=== PATIENT | male | born 1955 | race Caucasian/White ===

== ENCOUNTER 2019-08-23 07:54 | Outpatient (CLI) | payer BC ==
[2019-08-23 11:09] LABS: ALBUMIN 4.1 g/dL (3.2-5.5); ALBUMIN/GLOBULIN RATIO 1.3 (1.0-2.2); BILIRUBIN,TOTAL 1.1 mg/dL (0.2-1.0); CALCIUM 9.2 mg/dL (8.5-10.3); CREATININE 1.1 mg/dL (0.6-1.2); TOTAL PROTEIN 7.2 g/dL (6.7-8.2)
== END 2019-08-23 07:55 | disposition home or self-care (01) ==
LOC: LAB.S 07:54
PROVIDERS: ATTEND Internal Medicine
DX: Z00.00 Encounter for general adult medical examination without abnormal findings (principal)
CPT/HCPCS: 36415; 80053

== ENCOUNTER 2019-09-20 07:35 | Outpatient (CLI) | payer BC ==
[2019-09-20 11:31] LABS: ALBUMIN/GLOBULIN RATIO 1.5 (1.0-2.2); ALKALINE PHOSPHATASE 37 IU/L (42-121); ALT ALANINE AMINOTRANSFERASE 17 IU/L (10-60); AST ASPARTATE AMINOTRANSFERASE 18 IU/L (10-42); BILIRUBIN,TOTAL 1.3 mg/dL (0.2-1.0); BUN - BLOOD UREA NITROGEN 13 mg/dL (6-20); CALCIUM 8.9 mg/dL (8.5-10.3); CARBON DIOXIDE - CO2 29 mmol/L (21-32); CHLORIDE 105 mmol/L (101-111); CHOL/HDL RATIO 3.3 (<5.0); CHOLESTEROL 207 mg/dL; GFR - MDRD 76 (>89); GLUCOSE 104 mg/dL (70-100); HDL CHOLESTEROL 62 mg/dL; SODIUM 140 mmol/L (135-145); TOTAL PROTEIN 6.6 g/dL (6.7-8.2)
[2019-09-20 11:32] LABS: HGB - HEMOGLOBIN 14.2 g/dL (14.0-18.0); MEAN CORPUSCULAR HEMOGLOBIN 32.1 pg (27.0-31.0); MEAN CORPUSCULAR VOLUME 97.1 fL (80.0-94.0); MEAN PLATELET VOLUME 10.9 fL (7.4-11.4); RED BLOOD COUNT 4.43 10^6/uL (4.70-6.10); RED CELL DISTRIBUTION WIDTH 13.1 % (12.0-15.0); WHITE BLOOD COUNT 4.9 x10^3/uL (4.8-10.8)
[2019-09-20 11:34] LABS: HB2 TOTAL 14.5 g/dL; HEMOGLOBIN A1C 0.54 g/dL; HEMOGLOBIN A1C % 5.6 % (4.6-6.2)
== END 2019-09-20 07:36 | disposition home or self-care (01) ==
LOC: LAB.S 07:35
PROVIDERS: ATTEND Internal Medicine
DX: Z00.00 Encounter for general adult medical examination without abnormal findings (principal); N40.1 Benign prostatic hyperplasia with lower urinary tract symptoms; R35.0 Frequency of micturition
CPT/HCPCS: 36415; 80053; 80061; 83036; 83721; 84153; 85027

== ENCOUNTER 2020-12-19 08:00 | Outpatient (CLI) | payer BC ==
[2020-12-19 20:32] LABS: BILIRUBIN,URINE NEGATIVE (NEGATIVE); GLUCOSE, URINE (UA) NEGATIVE (NEGATIVE); KETONES,URINE (UA) NEGATIVE (NEGATIVE); LEUKOCYTE ESTERASE, URINE NEGATIVE (NEGATIVE); NITRITE,URINE NEGATIVE (NEGATIVE); OCCULT BLOOD,URINE TRACE-INTA (NEGATIVE); PH,URINE 5.5 PH (5.0-7.5); PROTEIN,URINE NEGATIVE (NEGATIVE); UROBILINOGEN,URINE 0.2 (NORMAL) E.U./dL (NORMAL)
[2020-12-19 20:40] LABS: BACTERIA,URINE Rare /HPF (None Seen); CLARITY,URINE CLEAR (CLEAR); RBC,URINE 0-5 /HPF (0-5); SQUAMOUS EPITHELIAL CELL,UR RARE Squamous (<= Few); WBC,URINE 0-3 /HPF (0-3)
== END 2020-12-19 23:59 | disposition home or self-care (01) ==
LOC: LAB.S 08:00
PROVIDERS: ATTEND Emergency Medicine
DX: R30.0 Dysuria (principal)
CPT/HCPCS: 81001; 87086

== ENCOUNTER 2021-07-27 11:29 | Outpatient (CLI) | payer BC | END 2021-07-27 11:30 | disposition critical access hospital (66) | LOC: EMS 11:29 | DX: R10.9 Unspecified abdominal pain (principal) | CPT/HCPCS: A0425; A0429 ==

== ENCOUNTER 2021-07-27 11:44 | Emergency (ER) | payer BC ==
[2021-07-27 12:13] LABS: BASOPHILS % (AUTO) 0.7 %; EOSINOPHILS # (AUTO) 0.1 10^3/uL (0.0-0.7); HCT - HEMATOCRIT 43.6 % (42.0-52.0); HGB - HEMOGLOBIN 14.4 g/dL (14.0-18.0); LYMPHOCYTES # (AUTO) 1.5 10^3/uL (1.5-3.5); LYMPHOCYTES % (AUTO) 26.7 %; MEAN CORPUSCULAR VOLUME 96.9 fL (80.0-94.0); MEAN PLATELET VOLUME 9.8 fL (7.4-11.4); MONOCYTES # (AUTO) 0.7 10^3/uL (0.0-1.0); MONOCYTES % (AUTO) 12.8 %; NEUTROPHILS # (AUTO) 3.2 10^3/uL (1.5-6.6); NEUTROPHILS % (AUTO) 57.6 %; PLT - PLATELET COUNT 194 10^3/uL (130-450); RED CELL DISTRIBUTION WIDTH 13.1 % (12.0-15.0); WHITE BLOOD COUNT 5.6 x10^3/uL (4.8-10.8)
--- NOTE | 2021-07-27 12:21 | ED Physician Documentation ---
History of Present Illness - Stated complaint Stated Complaint: ABD PX - Chief complaint Chief Complaint: Abd Pain - Additonal information Additional information: 65-year-old male presents from the [facility] for evaluation of abdominal pain. He has severe and early onset dementia. Per EMS the staff reported that he had been saying he had belly pain for a few days. There have been no fevers or vomiting. The staff and the physician that were working today were not as familiar with the patient as would otherwise be. Though the patient presents appearing very well though he is very confused and demented he is denying any abdominal pain and no abdominal pain is elicited on exam. He appears very well overall. Review of Systems Unable to obtain: Dementia, Other (EMS) Constitutional: denies: Fever, Chills Eyes: reports: Reviewed and negative Ears: reports: Reviewed and negative Nose: reports: Reviewed and negative Throat: reports: Reviewed and negative GI: reports: Abdominal Pain PD PAST MEDICAL HISTORY - Allergies Allergies/Adverse Reactions: Allergies Allergy/AdvReac Type Severity Reaction Status Date / Time No Known Drug Allergies Allergy Verified 07/27/21 11:54 PD ED PE NORMAL - General General: Alert and oriented X 3, No acute distress - HEENT HEENT: Moist mucous membranes, Pharynx benign - Neck Neck: Supple, no meningeal sign, No adenopathy - Cardiac Cardiac: RRR, No murmur - Respiratory Respiratory: No respiratory distress, Clear bilaterally - Abdomen Abdomen: Normal bowel sounds, Soft, Non tender, Non distended, Other (Unable to elicit any tenderness with deep or light palpation or percussion.) - Back Back: No CVA TTP, No spinal TTP - Derm Derm: Normal color, No rash - Extremities Extremities: No deformity, No tenderness to palpate, Normal ROM s pain - Neuro Neuro: no bake molder 2-12 intact, No motor deficit, No sensory deficit, Other (Disoriented to person place and time. Severe dementia) Eye Opening: Spontaneous Motor: Obeys Commands Verbal: Confused GCS Score: 14 Results - Vitals Vitals: Vital Signs - 24 hr 07/27/21 07/27/21 11:55 12:57 Temperature 36.9 C Heart Rate 115 H 72 Respiratory 20 16 Rate Blood Pressure 146/85 H 144/90 H O2 Saturation 99 100 Oxygen O2 Source Room air - Labs Labs: Laboratory Tests 07/27/21 07/27/2121 12:09 12:09 14:15 WBC 5.6 RBC 4.50 L Hgb 14.4 Hct 43.6 MCV 96.9 H MCH 32.0 H MCHC 33.0 RDW 13.1 Plt Count 194 MPV 9.8 Neut # (Auto) 3.2 Lymph # (Auto) 1.5 [place] # (Auto) 0.7 Eos # (Auto) 0.1 Baso # (Auto) 0.0 Absolute Nucleated RBC 0.00 Nucleated RBC % 0.0 Sodium 142 Potassium 3.9 Chloride 104 Carbon Dioxide 28 Anion Gap 10.0 BUN 15 Creatinine 1.0 Estimated GFR (MDRD) 75 L Glucose 91 Calcium 9.3 Total Bilirubin 1.2 H AST 17 ALT 14 Alkaline Phosphatase 42 Total Protein 6.9 Albumin 4.3 Globulin 2.6 Albumin/Globulin Ratio 1.7 Lipase 33 Urine Color LT. YELLOW Urine Clarity CLEAR Urine pH 7.0 Ur Specific [place] 1.010 Urine Protein NEGATIVE Urine Glucose (UA) NEGATIVE Urine Ketones NEGATIVE Urine Occult Blood NEGATIVE Urine Nitrite NEGATIVE Urine Bilirubin NEGATIVE Urine Urobilinogen 0.2 (NORMAL) Ur Leukocyte Esterase NEGATIVE Ur Microscopic Review NOT INDICATED Urine Culture Comments NOT INDICATED PD MEDICAL DECISION MAKING - ED course Complexity details: reviewed results, re-evaluated patient, considered differential ED course: 65-year-old male who has a history of early and severe onset dementia presents to the emergency department with reported abdominal pain at the [facility]. However on presentation here to the emergency department the patient has no elicited abdominal pain. He has no fevers and unremarkable vital signs. His screening labs show no leukocytosis no findings of urinary tract infection. He has tolerated p.o. well here in the emergency department without vomiting. The etiology of his abdominal pain is not clear though none is elicited here thus imaging was deferred. Patient will be transferred back to his care facility. Departure - Departure Disposition: 01 Home, Self Care Clinical Impression: Dementia Qualifiers: Dementia type: Alzheimer's Alzheimer's disease onset: early-onset Dementia behavioral disturbance: without behavioral disturbance Qualified Code(s): G30.0 - Alzheimer's disease with early onset; F02.80 - Dementia in other diseases classified elsewhere without behavioral disturbance Condition: Stable Record reviewed to determine appropriate education?: Yes Instructions: Abdominal Pain Comments: Des was brought to the emergency department for reported abdominal pain. However here in the emergency department we were unable to elicit any abdominal pain. His screening labs including his urine show no significant worrisome findings and no signs of infection. If he begins to run any fevers or have uncontrolled vomiting then please return him immediately to the ER for a second evaluation.
[2021-07-27 12:27] LABS: ALBUMIN 4.3 g/dL (3.2-5.5); ALBUMIN/GLOBULIN RATIO 1.7 (1.0-2.2); BILIRUBIN,TOTAL 1.2 mg/dL (0.2-1.0); CALCIUM 9.3 mg/dL (8.5-10.3); POTASSIUM 3.9 mmol/L (3.5-5.0); TOTAL PROTEIN 6.9 g/dL (6.7-8.2)
[2021-07-27 12:57] VITALS: BP 144/90
[2021-07-27 14:33] LABS: BILIRUBIN,URINE NEGATIVE (NEGATIVE); GLUCOSE, URINE (UA) NEGATIVE (NEGATIVE); KETONES,URINE (UA) NEGATIVE (NEGATIVE); LEUKOCYTE ESTERASE, URINE NEGATIVE (NEGATIVE); NITRITE,URINE NEGATIVE (NEGATIVE); OCCULT BLOOD,URINE NEGATIVE (NEGATIVE); PROTEIN,URINE NEGATIVE (NEGATIVE); UROBILINOGEN,URINE 0.2 (NORMAL) E.U./dL (NORMAL)
[2021-07-27 14:38] LABS: CLARITY,URINE CLEAR (CLEAR)
== END 2021-07-27 16:07 | disposition home or self-care (01) ==
LOC: EDUNIT# → ED 11:44
DX: G30.0 Alzheimer's disease with early onset (principal); F02.80 Dementia in other diseases classified elsewhere, unspecified severity, without behavioral disturbance, psychotic disturbance, mood disturbance, and anxiety
CPT/HCPCS: 36415; 51701; 80053; 81001; 81003; 83690; 85025; 87086; 99283

== ENCOUNTER 2021-07-29 15:58 | Outpatient (CLI) | payer BC | END 2021-07-29 15:59 | disposition critical access hospital (66) | LOC: EMS 15:58 | DX: R10.30 Lower abdominal pain, unspecified (principal); R14.0 Abdominal distension (gaseous) | CPT/HCPCS: A0425; A0429 ==

== ENCOUNTER 2021-07-29 16:14 | Emergency (ER) | payer BC ==
--- NOTE | 2021-07-29 16:18 | ED Physician Documentation ---
History of Present Illness - Stated complaint Stated Complaint: LOWER ABD PX - History obtained from History obtained from: EMS - Additonal information Additional information: 65-year-old gentleman brought in from [facility] for complaints of lower abdominal pain for the last few hours. He is quite demented and unable to really get any specific history from the patient, he is just speaking gibberish for the most part. Per EMS, he has been complaining of lower abdominal pain and penile burning for the last 2 hours or so. He was straight cathed at the facility without relief. Review of Systems Unable to obtain: Dementia PD PAST MEDICAL HISTORY - Past Medical History Neuro: Alzhiemer's - Allergies Allergies/Adverse Reactions: Allergies Allergy/AdvReac Type Severity Reaction Status Date / Time No Known Drug Allergies Allergy Verified 07/29/21 16:24 - Social History Does the pt smoke?: No Smoking Status: Never smoker PD ED PE NORMAL - Vitals Vital signs reviewed: Yes - General General: No acute distress, Other (Nonsensical gibberish speech) - Abdomen Abdomen: Normal bowel sounds, Soft, Non tender Results - Vitals Vitals: Vital Signs - 24 hr 07/29/21 16:25 Temperature 36.5 C Heart Rate 94 Respiratory 16 Rate Blood Pressure 121/66 O2 Saturation 98 Oxygen O2 Source Room air - Labs Labs: Laboratory Tests 07/29/21 07/29/21 16:30 16:30 WBC 6.9 RBC 4.36 L Hgb 14.0 Hct 42.0 MCV 96.3 H MCH 32.1 H MCHC 33.3 RDW 13.1 Plt Count 206 MPV 10.4 Neut # (Auto) 4.4 Lymph # (Auto) 1.6 [place] # (Auto) 0.8 Eos # (Auto) 0.1 Baso # (Auto) 0.0 Absolute Nucleated RBC 0.00 Nucleated RBC % 0.0 Sodium 140 Potassium 3.7 Chloride 106 Carbon Dioxide 25 Anion Gap 9.0 BUN 18 Creatinine 1.1 Estimated GFR (MDRD) 68 L Glucose 94 Calcium 9.1 Total Bilirubin 0.9 AST 18 ALT 13 Alkaline Phosphatase 40 L Total Protein 6.8 Albumin 4.2 Globulin 2.6 Albumin/Globulin Ratio 1.6 Lipase 38 PD MEDICAL DECISION MAKING - ED course ED course: 65-year-old gentleman presents by ambulance for recurrent abdominal pain. History is limited by dementia but exam is very benign. He was here a few days ago for similar with negative work-up, normal labs. 65-year-old gentleman presents with suprapubic pain and is found to be retaining urine with a bladder scan of greater than 600 mL. Damon was placed and I discussed the case by phone with the nursing plant operator/shift supervisor at home place. There is a concern of how well he will tolerate the Damon but will have to just give it a try right now. He is already on tamsulosin and finasteride. Has established urologist. Spoke with brother/POA, pt had TURP 2 yrs ago. Has established urologist. Departure - Departure Disposition: Home, Self Care Clinical Impression: Urinary retention BPH (benign prostatic hyperplasia) Qualifiers: Lower urinary tract symptom presence: symptoms present Lower urinary tract symptom detail: incomplete bladder emptying Qualified Code(s): N40.1 - Benign prostatic hyperplasia with lower urinary tract symptoms Condition: Good Record reviewed to determine appropriate education?: Yes Instructions: ED Retention Urinary Male Comments: Continue current medications. Routine Damon care and please arrange for it to have it changed out once a month. Return as needed.
[2021-07-29 16:29] VITALS: BP 121/66
[2021-07-29 16:49] LABS: ALBUMIN 4.2 g/dL (3.2-5.5); ALBUMIN/GLOBULIN RATIO 1.6 (1.0-2.2); BILIRUBIN,TOTAL 0.9 mg/dL (0.2-1.0); CALCIUM 9.1 mg/dL (8.5-10.3); CREATININE 1.1 mg/dL (0.6-1.2); POTASSIUM 3.7 mmol/L (3.5-5.0); TOTAL PROTEIN 6.8 g/dL (6.7-8.2)
[2021-07-29 16:52] LABS: BASOPHILS % (AUTO) 0.3 %; EOSINOPHILS # (AUTO) 0.1 10^3/uL (0.0-0.7); EOSINOPHILS % (AUTO) 1.2 %; LYMPHOCYTES # (AUTO) 1.6 10^3/uL (1.5-3.5); LYMPHOCYTES % (AUTO) 22.8 %; MEAN CORPUSCULAR HEMOGLOBIN 32.1 pg (27.0-31.0); MEAN CORPUSCULAR HGB CONC 33.3 g/dL (32.0-36.0); MEAN CORPUSCULAR VOLUME 96.3 fL (80.0-94.0); MEAN PLATELET VOLUME 10.4 fL (7.4-11.4); MONOCYTES # (AUTO) 0.8 10^3/uL (0.0-1.0); MONOCYTES % (AUTO) 12.2 %; NEUTROPHILS # (AUTO) 4.4 10^3/uL (1.5-6.6); NEUTROPHILS % (AUTO) 63.4 %; PLT - PLATELET COUNT 206 10^3/uL (130-450); RED BLOOD COUNT 4.36 10^6/uL (4.70-6.10); RED CELL DISTRIBUTION WIDTH 13.1 % (12.0-15.0); WHITE BLOOD COUNT 6.9 x10^3/uL (4.8-10.8)
== END 2021-07-29 18:56 | disposition home or self-care (01) ==
LOC: EDUNIT# → ED 16:14
DX: N40.1 Benign prostatic hyperplasia with lower urinary tract symptoms (principal); R33.8 Other retention of urine; R39.14 Feeling of incomplete bladder emptying; G30.9 Alzheimer's disease, unspecified; F02.80 Dementia in other diseases classified elsewhere, unspecified severity, without behavioral disturbance, psychotic disturbance, mood disturbance, and anxiety
CPT/HCPCS: 36415; 51702; 80053; 83690; 85025; 99281; 99284

== ENCOUNTER 2021-12-08 08:53 | Emergency (ER) | payer BC ==
--- NOTE | 2021-12-08 09:04 | ED Physician Documentation ---
History of Present Illness - Stated complaint Stated Complaint: MALE - History obtained from History obtained from: EMS - History of Present Illness Timing: Today - Additonal information Additional information: 66-year-old male with advanced dementia is a resident of [facility] and has a chronic indwelling Damon catheter. Nursing staff is noted blood- tinged urine that is cloudy and increased confusion and complaints of pain. The patient is unable to provide any significant history but does acknowledge pain with palpation of the distended lower abdomen. Review of Systems Unable to obtain: Dementia Constitutional: denies: Fever Respiratory: denies: Cough GI: reports: Abdominal Pain, Abdominal Swelling. denies: Vomiting PD PAST MEDICAL HISTORY - Past Medical History Neuro: Alzhiemer's - Present Medications Home Medications: Ambulatory Orders Medication Instructions Recorded Confirmed Sulfamethox/Trimeth 800/160 1 each PO BID #14 tablet 12/08/21 [Bactrim Ds] - Allergies Allergies/Adverse Reactions: Allergies Allergy/AdvReac Type Severity Reaction Status Date / Time No Known Drug Allergies Allergy Verified 12/08/21 09:19 - Social History Does the pt smoke?: No Smoking Status: Never smoker PD ED PE NORMAL - Vitals Vital signs reviewed: Yes - General General: No acute distress, Well developed/nourished, Other (At rest the patient has a vacant stare. ) - HEENT HEENT: Atraumatic, PERRL - Neck Neck: Supple, no meningeal sign - Cardiac Cardiac: RRR, No murmur - Respiratory Respiratory: No respiratory distress, Clear bilaterally - Abdomen Abdomen: Soft, Other (Lower abdomen distended and tender. Consistent with tender distended bladder. ) - Back Back: No CVA TTP, No spinal TTP - Derm Derm: Normal color, Warm and dry, No rash - Extremities Extremities: No deformity, No edema - Neuro Neuro: marketing forecaster 2-12 intact, No motor deficit, No sensory deficit, Normal speech Eye Opening: To Voice Motor: Obeys Commands Verbal: Confused GCS Score: 13 - Psych Psych: Normal mood, Normal affect Results - Vitals Vitals: Vital Signs - 24 hr 12/08/21 12/08/21 09:15 09:48 Temperature 36.6 C Heart Rate 90 63 Respiratory 22 16 Rate Blood Pressure 147/121 H 126/69 O2 Saturation 99 96 Oxygen O2 Source Room air - Labs Labs: Laboratory Tests 12/08/21 09:12 Urine Color YELLOW Urine Clarity CLOUDY Urine pH 6.5 Ur Specific [place] 1.025 Urine Protein TRACE Urine Glucose (UA) NEGATIVE Urine Ketones TRACE Urine Occult Blood LARGE H Urine Nitrite NEGATIVE Urine Bilirubin NEGATIVE Urine Urobilinogen 0.2 (NORMAL) Ur Leukocyte Esterase SMALL H Urine RBC 11-25 H Urine WBC >25 H Urine WBC Clumps PRESENT Ur Squamous Epith Cells NONE SEEN Urine Bacteria Many H Ur Microscopic Review INDICATED Urine Culture Comments INDICATED PD MEDICAL DECISION MAKING - ED course Complexity details: reviewed old records, reviewed results, re-evaluated patient, considered differential, d/w patient ED course: 66-year-old male with early onset advanced dementia is in the emergency department with a Damon catheter in place and appears to have acute obstruction. He has lower abdominal tenderness and distention a Damon catheter is replaced returning over 600 mL of urine with relief of pain to the patient. The urine appears infected. He is administered a gram of Rocephin IM. He does not appear to be septic or require hospitalization. Departure - Departure Disposition: 01 Home, Self Care Clinical Impression: Acute urinary retention Urinary tract infection Qualifiers: Urinary tract infection type: catheter-associated UTI Indwelling urinary catheter type: indwelling urethral catheter Encounter type: initial encounter Qualified Code(s): T83.511A - Infection and inflammatory reaction due to indwelling urethral catheter, initial encounter Instructions: ED Catheter Care Damon, ED Retention Urinary Male, ED UTI C ystitis Male Follow-Up: MENG RUSSO ARNP [Primary Care Provider] - Prescriptions: Sulfamethox/Trimeth 800/160 [Bactrim Ds] 1 each PO BID #14 tablet Comments: Des, today it looks like you have a urinary tract infection and this is likely the cause of your acute retention. The catheter has been replaced we have given you an injection of antibiotic and additional oral antibiotic has been E scribed to [facility].
[2021-12-08 09:30] LABS: BILIRUBIN,URINE NEGATIVE (NEGATIVE); GLUCOSE, URINE (UA) NEGATIVE (NEGATIVE); KETONES,URINE (UA) TRACE mg/dL (NEGATIVE); LEUKOCYTE ESTERASE, URINE SMALL (NEGATIVE); NITRITE,URINE NEGATIVE (NEGATIVE); OCCULT BLOOD,URINE LARGE (NEGATIVE); PH,URINE 6.5 PH (5.0-7.5); PROTEIN,URINE TRACE mg/dL (NEGATIVE); UROBILINOGEN,URINE 0.2 (NORMAL) E.U./dL (NORMAL)
[2021-12-08 09:34] LABS: CLARITY,URINE CLOUDY (CLEAR)
[2021-12-08 09:41] LABS: BACTERIA,URINE Many /HPF (None Seen); SQUAMOUS EPITHELIAL CELL,UR NONE SEEN (<= Few); WBC CLUMPS,URINE PRESENT; WBC,URINE >25 /HPF (0-3)
[2021-12-08] MEDS: cefTRIAXone 1 GM VIAL IM STA (09:47)
[2021-12-08] MEDS: LIDOCAINE 1% 2 ML VIAL MC ONE (09:47)
[2021-12-08 12:47] VITALS: BP 111/68
== END 2021-12-08 13:28 | disposition home or self-care (01) ==
LOC: EDUNIT# → ED 08:53
DX: T83.511A Infection and inflammatory reaction due to indwelling urethral catheter, initial encounter (principal); R33.9 Retention of urine, unspecified
CPT/HCPCS: 51702; 81001; 81003; 87086; 99282; 99284

== ENCOUNTER 2024-03-20 20:32 | Outpatient (CLI) | payer BC | END 2024-03-20 23:59 | disposition E | LOC: EMS 20:32 ==